=== PATIENT | female | born 1970 | race Two or more races ===

== ENCOUNTER 2017-06-19 12:15 | Outpatient (CLI) | payer OTHER ==
[~2017-06-19 12:15] MED LIST: DOLOGESIC CAPLE1 TAB PO; NABUMETONE500 MG PO
== END 2017-06-19 15:55 | disposition home or self-care (01) ==
LOC: RAD 501 12:15
DX: M25.561 Pain in right knee (principal); M25.562 Pain in left knee; M25.571 Pain in right ankle and joints of right foot

== ENCOUNTER 2023-12-18 08:45 | Outpatient (CLI) | payer OTHER | END 2023-12-18 09:03 | disposition home or self-care (01) | LOC: SONOGRAMA 08:45 | PROVIDERS: ATTEND Orthopaedic Surgery | DX: M25.562 Pain in left knee (principal); M75.122 Complete rotator cuff tear or rupture of left shoulder, not specified as traumatic; M25.512 Pain in left shoulder ==